=== PATIENT | female | born 1990 | race Caucasian/White ===

== ENCOUNTER 2016-06-16 09:22 | Emergency (ER) | payer BC ==
[~2016-06-16] VITALS: Wt 77.0 kg
[~2016-06-16 09:22] MED LIST: ALBU8.5H5 IH; ASPI1TAB2 PO; BENZ100C70 PO; CYCL-319 PO; HYDR-3498 PO; IBUP-1542 PO; MED4DP PO; NAPR-688 PO
[2016-06-16] MEDS ORDERED: ONDANSETRON (ODT) 4 MG TAB ODT STA ×2 (09:50→11:04)
[2016-06-16] MEDS ORDERED: DIPHENHYDRAMINE 25 MG CAP PO ONE (10:00)
[2016-06-16 10:38] LABS: ADD UMIC YES; URINE BILIRUBIN (Dip) NEGATIVE (NEGATIVE); URINE BLOOD (Dip) 1+ (NEGATIVE); URINE COLOR LT. YELLOW (YELLOW); URINE GLUCOSE (Dip) NEGATIVE (NEGATIVE); URINE KETONES (Dip) NEGATIVE (NEGATIVE); URINE LEUKOCYTE ESTERASE (Dip) NEGATIVE (NEGATIVE); URINE NITRITE (Dip) NEGATIVE (NEGATIVE); URINE TOTAL PROTEIN (Dip) NEGATIVE (NEGATIVE); URINE UROBILINOGEN (Dip) 0.2 E.U./dL (0.1-1.0)
[2016-06-16 10:40] LABS: BASOPHILS % 0.2 % (0.0-2.0); EOSINOPHILS # 0.1 10^3/ul (0.0-0.5); EOSINOPHILS % 0.5 % (0.0-7.0); HEMATOCRIT 41.7 % (37.0-47.0); HEMOGLOBIN 13.9 g/dl (12.0-16.0); LYMPHOCYTES % 17.7 % (15.0-51.0); MEAN CORPUSCULAR HEMOGLOBIN 28.1 pg (29.0-33.0); MEAN CORPUSCULAR HGB CONC 33.4 g/dl (32.0-37.0); MEAN CORPUSCULAR VOLUME 84.2 fl (82.0-101.0); MONOCYTE # 0.7 10^3/ul (0.3-0.9); MONOCYTES % 6.4 % (0.0-11.0); NEUTROPHIL # 8.4 10^3/ul (1.6-7.5); NEUTROPHILS % 75.2 % (39.0-77.0); PLATELET COUNT 349 10^3/UL (140-440); RED BLOOD COUNT 4.95 10^6/ul (4.20-5.40); RED CELL DISTRIBUTION WIDTH 14.3 % (11.5-14.5); UNCORRECTED WBC 11.1 10^3/ul (4.8-10.8); WHITE BLOOD COUNT 11.1 10^3/ul (4.8-10.8)
[2016-06-16 10:43] LABS: CONDITION 1
[2016-06-16 10:51] LABS: ALBUMIN 4.2 g/dl (3.3-4.9); POTASSIUM 4.4 mmol/L (3.5-5.1)
[2016-06-16 10:53] LABS: CREATININE 0.57 mg/dl (0.44-1.00)
[2016-06-16 10:54] LABS: URINE RBCS 0-2 /HPF (0)
[2016-06-16 10:54] LABS: ALBUMIN/GLOBULIN RATIO 1.02; BILIRUBIN,INDIRECT 0.1 mg/dl (0-1.1); BILIRUBIN,TOTAL 0.1 mg/dl (0.2-1.3); TOTAL PROTEIN 8.3 g/dl (6.1-8.1)
[2016-06-16 10:55] LABS: CALCIUM 9.1 mg/dl (8.4-10.2)
[2016-06-16] MEDS ORDERED: ONDA4TAB14 PO ×2 (11:01→11:03)
--- NOTE | 2016-06-16 11:12 | ERD ---
ER Documentation Chief Complaint Date/Time DATE: 06/16/16 TIME: 11:05 Chief Complaint nausea and vomiting for the past week. no ap. mild dizziness HPI 26 year old female with a history of anxiety comes in with nausea in the AM only on and off for the week with intermittent vomiting. She states that she has a history of anxiety as well as depression, has not been treated for this recently previously took Ativan she states that it seemed to help her much. She wakes up feeling anxious that leads to nausea and nonbilious, nonbloody vomiting. She denies abdominal pain, fevers or chills. ROS All systems reviewed and are negative except as per history of present illness. Medications Home Meds Active Scripts Ondansetron (Ondansetron Odt) 4 Mg Tab.rapdis, 4 MG PO Q6H Y for NAUSEA AND/OR VOMITING, #10 TAB Prov:AMARJIT ELLIS PA-C 06/16/16 Naproxen* (Naproxen*) 500 Mg Tablet, 500 MG PO BID Y for HEADACHE, #20 TAB Prov:MIGUEL ANGEL STEARNS MD 02/07/16 Hydrocodone Bit-Acetaminophen* ([place]*) 5-325 Mg Tab, 1 TAB PO Q6 Y for PAIN, # 20 TAB Prov:LUAN CARY NP 04/05/15 Methylprednisolone* (Medrol* DOSE PACK) 4 Mg/Dose-Pack Tab.ds.pk, 4 MG PO . DIRECTED, #1 PACKET Prov:JORGE SLAUGHTER PA-C 03/15/15 Benzonatate* (Tessalon Perle*) 100 Mg Capsule, 200 MG PO TID Y for COUGH for 10 Days, CAP Prov:JORGE SLAUGHTER PA-C 03/15/15 Albuterol Sulfate* (Albuterol Sulfate* HFA) 8.5 Gm Hfa.aer.ad, 2 PUFF IH Q6, #1 EA Prov:JORGE SLAUGHTER PA-C 03/15/15 Cyclobenzaprine Hcl* (Cyclobenzaprine Hcl*) 10 Mg Tablet, 10 MG PO TID, #15 TAB Prov:JORGE BARRIOS MD 10/07/14 Ibuprofen* (Motrin*) 600 Mg Tab, 600 MG PO Q6, #20 TAB Prov:JORGE BARRIOS MD 10/07/14 Hydrocodone Bit-Acetaminophen* ([place]*) 5-325 Mg Tab, 1 TAB PO Q6 Y for PAIN, # 14 TAB Prov:JORGE BARRIOS MD 10/07/14 Reported Medications Kujanvu-Pfocyqnwomvpa-Fllzjxxq* (Excedrin Extra Strength*) 250-250-65 Mg Tablet , 1 TAB PO DAILY Y for HEADACHE, TAB 02/04/14 Hydrocodone Bit-Acetaminophen* ([place]*) 5-325 Mg Tab, 1 TAB PO Q4H Y for SEVERE PAIN LEVEL 7-10, TAB 02/04/14 Allergies Allergies: Coded Allergies: No Known Drug Allergy (Verified Allergy, Mild, N, 02/04/14) PMhx/Soc History of Surgery: No Anesthesia Reaction: No Hx Neurological Disorder: No Hx Respiratory Disorders: No Hx Cardiac Disorders: No Hx Psychiatric Problems: No Hx Miscellaneous Medical Probl: No Hx Alcohol Use: No Hx Substance Use: No Hx Tobacco Use: No Smoking Status: Never smoker Physical Exam Vitals Vital Signs Date Time Temp Pulse Resp B/P Pulse Ox O2 Delivery O2 Flow Rate FiO2 06/16/16 09:24 98.3 75 20 138/65 99 Physical Exam General: Well-developed, well-nourished. The patient appears in no acute distress. HEENT: Head is normocephalic, atraumatic. No scleral icterus. Pupils are equal , round, and reactive. Oral mucous membranes are moist. No pharyngeal erythema. Neck: Supple. Nontender. Lungs: Clear to auscultation. Normal air movement. Heart: Regular rate and rhythm. S1 and S2 are normal. No murmurs, gallops, or rubs. Abdomen: Soft, nontender, nondistended. Bowel sounds are normoactive. Extremities: No clubbing or cyanosis. Normal pulses. Moving extremities x 4. No weakness. Neurologic: Alert and oriented 3. No focal deficits. Skin: Normal turgor. No rash or lesions. Result Diagram: 06/16/16 1015 06/16/16 1015 Results 24 hrs Laboratory Tests Test 06/16/16 10:15 06/16/16 10:16 Alanine Aminotransferase (ALT/SGPT) 33IU/L Albumin 4.2g/dl Albumin/Globulin Ratio 1.02 Alkaline Phosphatase 115IU/L Anion Gap 15 Aspartate Amino Transf (AST/SGOT) 22IU/L Basophils # 0.010^3/ul Basophils % 0.2% Blood Morphology Comment Blood Urea Nitrogen 9mg/dl Calcium Level 9.1mg/dl Carbon Dioxide Level 27mmol/L Chloride Level 104mmol/L Creatinine 0.57mg/dl Direct Bilirubin 0.00mg/dl Eosinophils # 0.110^3/ul Eosinophils % 0.5% Globulin 4.10g/dl Glucose Level 99mg/dl Hematocrit 41.7% Hemoglobin 13.9g/dl Indirect Bilirubin 0.1mg/dl Lymphocytes # 2.010^3/ul Lymphocytes % 17.7% Mean Corpuscular Hemoglobin 28.1pg Mean Corpuscular Hemoglobin Concent 33.4g/dl Mean Corpuscular Volume 84.2fl Mean Platelet Volume 8.0fl Monocytes # 0.710^3/ul Monocytes % 6.4% Neutrophils # 8.410^3/ul Neutrophils % 75.2% Nucleated Red Blood Cells # 0.010^3/ul Nucleated Red Blood Cells % 0.0/100WBC Platelet Count 60773^3/UL Potassium Level 4.4mmol/L Red Blood Count 4.9510^6/ul Red Cell Distribution Width 14.3% Sodium Level 142mmol/L Total Bilirubin 0.1mg/dl Total Protein 8.3g/dl White Blood Count 11.110^3/ul Urine Bilirubin NEGATIVE Urine Clarity CLEAR Urine Color LT. YELLOW Urine Glucose NEGATIVE% Urine Hemoglobin 1+ Urine Ketones NEGATIVE Urine Leukocyte Esterase NEGATIVE Urine Microscopic RBC 0-2/HPF Urine Microscopic WBC 0-2/HPF Urine Nitrite NEGATIVE Urine Specific [place] <=1.005 Urine Total Protein NEGATIVE Urine Urobilinogen 0.2 E.U./dL Urine pH 6.0 Current Medications Medications (Trade) Dose Ordered Sig/Emelyn Route PRN Reason Start Time Stop Time Status Last Admin Dose Admin Ondansetron HCl (Zofran Odt) 4 mg ONCE STAT ODT 06/16/16 09:50 06/16/16 09:51 06/16/16 09:56 Diphenhydramine HCl (Benadryl) 25 mg ONCE ONCE PO 06/16/16 10:00 06/16/16 10:01 06/16/16 09:56 Ondansetron HCl (Zofran Odt) 4 mg ONCE STAT ODT 06/16/16 11:04 06/16/16 11:05 06/16/16 11:08 Procedures/MDM ED course: She was given Benadryl to treat for anxiety, as well as Zofran 4 mg ODT. She reports continuing nausea and was given Zofran 4 mg ODT as well. MDM: 18-year-old female comes with nausea, vomiting and anxiety symptoms, patient states that she believes this is related to her anxiety. She was not sure if she was comfortable taking a benzodiazepine for this and therefore was given Benadryl and Zofran here. I with 2 doses of Zofran she states that she feels significantly better at this time. Labs are unremarkable, no signs of dehydration, or electrolyte abnormalities. She does not have any abdominal pain upon palpation, no signs of acute or surgical abdominal process. She does admit to feeling depressed as well and I recommended that she talk to her primary care doctor to start an antidepressant. She does not feel suicidal at this time or meet any emergent psychiatric evaluation requirements. Departure Diagnosis: Primary Impression: Vomiting Additional Impression: Anxiety Condition: Good Patient Instructions: Anxiety Reaction, Vomiting (6Y-Adult) Additional Instructions: Call your primary care doctor TOMORROW for an appointment during the next 1-2 days.See the doctor sooner or return here if your condition worsens before your appointment time. AMARJIT ELLIS PA-C Jun 16, 2016 11:12
[2016-06-16 11:49] VITALS: BP 128/68; PULSE 74; RESP 18; TEMP 98.1
== END 2016-06-16 11:50 | disposition home or self-care (01) ==
LOC: FTE 09:22
DX: R11.10 Vomiting, unspecified (principal); F41.9 Anxiety disorder, unspecified; Z79.82 Long term (current) use of aspirin
CPT/HCPCS: 36415; 80053; 81001; 85025; Z7502; Z7610; 81003; 99283

== ENCOUNTER 2016-11-09 23:50 | Emergency (ER) | payer BC ==
[~2016-11-09] VITALS: Ht 162.6 cm; Wt 75.0 kg
[~2016-11-09 23:50] MED LIST changes: +ONDA4TAB14 PO
[2016-11-10 00:09] VITALS: Ht 162.6 cm; Wt 75.0 kg
[2016-11-10] MEDS ORDERED: DIPHENHYDRAMINE 50 MG INJ IV ONE (01:00)
[2016-11-10] MEDS ORDERED: METOCLOPRAMIDE 10 MG INJ IV ONE (01:00)
[2016-11-10] MEDS ORDERED: SOD CHLORIDE 0.9% 500 ML IV ONE (01:00)
[2016-11-10] MEDS ORDERED: SUMA6VIA16 SQ (03:23)
[2016-11-10] MEDS ORDERED: BUTA1CAP38 PO (03:23)
[2016-11-10] MEDS ORDERED: METHYLPREDNISOLONE 125 MG INJ IV ONE (03:30)
[2016-11-10 04:04] VITALS: BP 132/65; PULSE 70; RESP 18; TEMP 98.2
--- NOTE | 2016-12-04 14:15 | ERD ---
ER Documentation Chief Complaint Date/Time DATE: 12/04/16 TIME: 14:07 Chief Complaint Pt reports Migraines and barnett for 6 hours with photosensitivity HPI This 26 yo female has had a throbbing frontal migraine headache for half of the day. It began gradually and progressed to severe. She has a history of migraines for which excedrin often helps. This time she is getting little relief. She has nausea and worries taht this headache will get worse and last for dyas. No trauma ROS All systems reviewed and are negative except as per history of present illness. Medications Home Meds Active Scripts Sumatriptan Succinate* (Imitrex* Inj) 6 Mg/0.5 Ml Vial, 6 MG SQ DAILY for HEADACHE, #5 VIAL MAX 6 mg/dose, repeat in 1 hour if needed. MAX 12 mg/24 hours Prov:MARIBEL MARTIN DO 11/10/16 Napeusfqyn-Xdwoguyflpfyx-Jlfpdllj* (Fioricet*) 50-300-40 Mg Capsule, 1 CAP PO Q4H Y for HEADACHE, #10 CAP Prov:MARIBEL MARTIN DO 11/10/16 Ondansetron (Ondansetron Odt) 4 Mg Tab.rapdis, 4 MG PO Q6H Y for NAUSEA AND/OR VOMITING, #10 TAB Prov:AMARJIT ELLIS PA-C 06/16/16 Naproxen* (Naproxen*) 500 Mg Tablet, 500 MG PO BID Y for HEADACHE, #20 TAB Prov:MIGUEL ANGEL STEARNS MD 02/07/16 Hydrocodone Bit-Acetaminophen* ([place]*) 5-325 Mg Tab, 1 TAB PO Q6 Y for PAIN, # 20 TAB Prov:LUAN CARY NP 04/05/15 Methylprednisolone* (Medrol* DOSE PACK) 4 Mg/Dose-Pack Tab.ds.pk, 4 MG PO . DIRECTED, #1 PACKET Prov:JORGE SLAUGHTER PA-C 03/15/15 Benzonatate* (Tessalon Perle*) 100 Mg Capsule, 200 MG PO TID Y for COUGH for 10 Days, CAP Prov:JORGE SLAUGHTER PA-C 03/15/15 Albuterol Sulfate* (Albuterol Sulfate* HFA) 8.5 Gm Hfa.aer.ad, 2 PUFF IH Q6, #1 EA Prov:JORGE SLAUGHTER PA-C 03/15/15 Cyclobenzaprine Hcl* (Cyclobenzaprine Hcl*) 10 Mg Tablet, 10 MG PO TID, #15 TAB Prov:JORGE BARRIOS MD 10/07/14 Ibuprofen* (Motrin*) 600 Mg Tab, 600 MG PO Q6, #20 TAB Prov:JORGE BARRIOS MD 10/07/14 Hydrocodone Bit-Acetaminophen* ([place]*) 5-325 Mg Tab, 1 TAB PO Q6 Y for PAIN, # 14 TAB Prov:JORGE BARRIOS MD 10/07/14 Reported Medications Ggiqvhz-Lgtvrxzunlkan-Faovegmk* (Excedrin Extra Strength*) 250-250-65 Mg Tablet , 1 TAB PO DAILY Y for HEADACHE, TAB 02/04/14 Hydrocodone Bit-Acetaminophen* ([place]*) 5-325 Mg Tab, 1 TAB PO Q4H Y for SEVERE PAIN LEVEL 7-10, TAB 02/04/14 Allergies Allergies: Coded Allergies: No Known Drug Allergy (Verified Allergy, Mild, N, 02/04/14) PMhx/Soc History of Surgery: No Anesthesia Reaction: No Hx Neurological Disorder: No Hx Respiratory Disorders: No Hx Cardiac Disorders: No Hx Psychiatric Problems: No Hx Miscellaneous Medical Probl: No Hx Alcohol Use: No Hx Substance Use: No Hx Tobacco Use: No Smoking Status: Never smoker Physical Exam Vitals AFVSS Physical Exam Const: [] Moderate distress Head: Atraumatic , Eyes: Normal ConjunctivaEOMI PERRL ENT: Normal External Ears, Nose and Mouth. Neck: Full range of motion..~ No meningismus. Resp: Clear to auscultation bilaterally Cardio: Regular rate and rhythm, no murmurs Abd: Soft, non tender, non distended. Normal bowel sounds Skin: No petechiae or rashes Back: No midline or flank tenderness Ext: No cyanosis, or edema Neur: Awake and alert and orieted x3, CN 2-12 inctact, no cerebellar deficits Psych: Normal Mood and Affect Results 24 hrs Current Medications Medications (Trade) Dose Ordered Sig/Emelyn Route PRN Reason Start Time Stop Time Status Last Admin Dose Admin Diphenhydramine HCl (Benadryl) 12.5 mg ONCE ONCE IV 11/10/16 01:00 11/10/16 01:01 DC 11/10/16 02:38 Metoclopramide HCl 10 mg 10 mg ONCE ONCE IV 11/10/16 01:00 11/10/16 01:01 DC 11/10/16 02:39 Sodium Chloride (NS) 500 ml @ 500 mls/hr Q1H ONCE IV 11/10/16 01:00 11/10/16 01:59 DC 11/10/16 02:38 Methylprednisolone Sodium Succinate (Solu-Medrol) 125 mg ONCE ONCE IV 11/10/16 03:30 11/10/16 03:31 DC 11/10/16 03:53 Procedures/MDM Migraine headache alleviated in ER wtih migraine cocktail. No suspicion for SAH. She was given IV benadryl, normal saline, reglan and solu-medrol. Within 20 minutes of medication administration headache was resolved. Patirenee jerome, thankful, ready to go home. Spent time discussion migraine relief with her. I am going to discharger with PCP follow up and prescriptions for a few fioricet and imitrex injections. Return precautions to ER as well. Departure Diagnosis: Primary Impression: Migraine Condition: Stable Patient Instructions: Preventing Migraine Headaches: Triggers Additional Instructions: Call your primary care doctor TOMORROW for an appointment during the next 2-3 days.See the doctor sooner or return here if your condition worsens before your appointment time. MARIBEL MARTIN DO Dec 04, 2016 14:14
== END 2016-11-10 04:07 | disposition home or self-care (01) ==
LOC: FTE 23:50
DX: G43.909 Migraine, unspecified, not intractable, without status migrainosus (principal); Z79.82 Long term (current) use of aspirin
CPT/HCPCS: 96374; 96375; J1200; J2765; J2930; J7040; Z7502